=== PATIENT | female | born 2000 | race African-American/Black ===

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

== ENCOUNTER 2020-06-20 12:57 | Observation (INO) | payer OTHER ==
[2020-06-20] MEDS ORDERED: IV RINGERS,LACTATED 1000ML 1,000 ML IV SCH (13:35)
[2020-06-20] MEDS ORDERED: BENZOCAINE 20% TOPICAL AEROSOL SPRAY 57GM CAN. TP PRN (14:00)
[2020-06-20 17:19] LABS: BILIRUBIN,URINE NEGATIVE (NEG); CLARITY,URINE CLOUDY; COLOR,URINE YELLOW; NITRITE,URINE NEGATIVE (NEG); PROTEIN,URINE NEGATIVE (NEG-TRACE); UROBILINOGEN,URINE 0.2 mg/dL (0.2 mg/dL)
[2020-06-20 17:25] LABS: BACTERIA,URINE MANY /HPF (0-FEW); RBC,URINE OCC /HPF (0-2); WBC,URINE 20-40 /HPF (0-4)
[2020-06-20 17:26] LABS: SQUAMOUS EPITHELIAL CELL,UR MANY /LPF
== END 2020-06-20 14:10 | disposition home or self-care (01) ==
LOC: 3 SO LND 12:57
PROVIDERS: ADMIT Obstetrics & Gynecology; ATTEND Obstetrics & Gynecology
DX: O22.43 Hemorrhoids in pregnancy, third trimester (principal); Z3A.29 29 weeks gestation of pregnancy
CPT/HCPCS: 81001; 87086; G0378; G0379

== ENCOUNTER 2020-12-11 02:37 | Emergency (ER) | payer OTHER ==
[~2020-12-11] VITALS: Ht 160 cm; Wt 59.1 kg
[~2020-12-11 02:37] MED LIST changes: +ESCITALOPRAM OX10 MG PO; +FERR325T72 PO; +IBUP-1027 PO
[2020-12-11 02:43] VITALS: BP 117/67
--- NOTE | 2020-12-11 03:09 | PHYS DOC ---
Past Medical History Past Medical History: No Pertinent History Past Surgical History: No Surgical History Smoking Status: Former Smoker Alcohol Use: None Drug Use: None General Adult EDM: Chief Complaint: SORE THROAT HPI: HPI: Patient is a 20 year old female with no past medical history presents for sore throat. She states that this has been going on for 3 weeks to 1 month. She states that in the beginning of this assess her throat hurt on the right side but now this is progressed to the left side. She states that the pain has been unchanged over this timeframe. She states it is a sharp pain that is worse when she swallows, eats, drinks. She states that yesterday she had an increase in the pain. She has tried Tylenol Cold and flu as well has lozenges, neither of which have brought relief. She also has some left ear pain. She denies cough, headache, congestion, shortness of breath, chest pain, abdominal pain, diarrhea. She states that she has been around salvatore at home who is sick with a viral process, Salvatore has been tested for Covid and was negative. Review of Systems: Review of Systems: Constitutional: Denies fever or chills. [] Eyes: Denies change in visual acuity. [] HENT: Denies nasal congestion Positive sore throat. [] Respiratory: Denies cough or shortness of breath. [] Cardiovascular: Denies chest pain or edema. [] GI: Denies abdominal pain, nausea, vomiting, bloody stools or diarrhea. [] : Denies dysuria. [] Musculoskeletal: Denies back pain or joint pain. [] Integument: Denies rash. [] Neurologic: Denies headache, focal weakness or sensory changes. [] Endocrine: Denies polyuria or polydipsia. [] Lymphatic: Denies swollen glands. [] Psychiatric: Denies depression or anxiety. [] Heart Score: Risk Factors: Risk Factors: DM, Current or recent (<one month) smoker, HTN, HLP, family history of CAD, obesity. Risk Scores: Score 0 - 3: 2.5% MACE over next 6 weeks - Discharge Home Score 4 - 6: 20.3% MACE over next 6 weeks - Admit for Clinical Observation Score 7 - 10: 72.7% MACE over next 6 weeks - Early Invasive Strategies Allergies: Allergies: Allergies Coded Allergies Type Severity Reaction Last Updated Verified No Known Drug Allergies 02/18/19 No Physical Exam: PE: Constitutional: Well developed, well nourished, no acute distress, non-toxic appearance. [] HENT: Normocephalic, atraumatic, TM bilateral ears normal, ear canal on left ear red and irritated, oropharynx moist, no oral exudates, nose normal. [] Eyes: PERRLA, EOMI, conjunctiva normal, no discharge. [] Neck: Normal range of motion, no tenderness, supple, no stridor. [] Cardiovascular:Heart rate regular rhythm, no murmur [] Lungs & Thorax: Bilateral breath sounds clear to auscultation [] Abdomen: Bowel sounds normal, soft, no tenderness, no masses, no pulsatile masses. [] Skin: Warm, dry, no erythema, no rash. [] Back: No tenderness, no CVA tenderness. [] Extremities: No tenderness, no cyanosis, no clubbing, ROM intact, no edema. [] Neurologic: Alert and oriented X 3, normal motor function, normal sensory fu nction, no focal deficits noted. [] Psychologic: Affect normal, judgement normal, mood normal. [] Current Patient Data: Vital Signs: Vital Signs Date Time Temp Pulse Resp B/P (MAP) Pulse Ox O2 Delivery O2 Flow Rate FiO2 12/11/20 02:43 98.3 99 16 117/67 (84) 98 98.3 EKG: EKG: [] Radiology/Procedures: Radiology/Procedures: [] Course & Med Decision Making: Course & Med Decision Making Pertinent Labs and Imaging studies reviewed. (See chart for details) [] Dragon Disclaimer: Gregoria Disclaimer: This electronic medical record was generated, in whole or in part, using a voice recognition dictation system. Departure Departure Impression: Primary Impression: Pharyngitis Disposition: 01 HOME SELF CARE/HOMELESS Condition: STABLE Referrals: NO PCP (PCP) Patient Instructions: Viral and Bacterial Pharyngitis Scripts Amoxicillin (AMOXICILLIN) 500 Mg Tablet 1 TAB PO BID, #20 TAB Prov: MIHAELA DOMINIQUE DO 12/11/20 MIHAELA DOMINIQUE DO Dec 11, 2020 03:09
[2020-12-11] MEDS ORDERED: AMOX500T PO (03:27)
== END 2020-12-11 03:31 | disposition home or self-care (01) ==
LOC: ER 02:37
DX: J02.9 Acute pharyngitis, unspecified (principal); Z87.891 Personal history of nicotine dependence
CPT/HCPCS: 99283

== ENCOUNTER 2021-05-14 13:01 | Emergency (ER) | payer OTHER ==
[~2021-05-14] VITALS: Ht 160 cm; Wt 52.0 kg
[~2021-05-14 13:01] MED LIST changes: +AMOX500T PO
[2021-05-14] MEDS ORDERED: cefTRIAXone IM 500 MG VIAL. IM ONE (14:00)
--- NOTE | 2021-05-14 14:00 | PHYS DOC ---
Past Medical History Past Medical History: No Pertinent History Past Surgical History: No Surgical History Smoking Status: Former Smoker Alcohol Use: None Drug Use: None General Adult EDM: Chief Complaint: BACK PAIN OR INJURY HPI: HPI: Patient is a 21 year old female who presents with today began having bilateral lower back pain is an aching type pain. She states that today she noticed some abnormal vaginal discharge to had a smell to it. She states that she there is a chance that she could have a sexual transmitted disease. She would like to be treated for them today. Patient denies fever, urinary symptoms, abdominal pain, nausea, vomiting, diarrhea, chest pain, shortness of breath, cough, headache or dizziness. She denies any other past medical history. Review of Systems: Review of Systems: Constitutional: Denies fever or chills. [] Eyes: Denies change in visual acuity. [] HENT: Denies nasal congestion or sore throat. [] Respiratory: Denies cough or shortness of breath. [] Cardiovascular: Denies chest pain or edema. [] GI: Denies abdominal pain, nausea, vomiting, bloody stools or diarrhea. [] : Denies dysuria. + Vaginal discharge [] Musculoskeletal: + Bilateral lower back pain or denies joint pain. [] Integument: Denies rash. [] Neurologic: Denies headache, focal weakness or sensory changes. [] Endocrine: Denies polyuria or polydipsia. [] Lymphatic: Denies swollen glands. [] Psychiatric: Denies depression or anxiety. [] Heart Score: C/O Chest Pain: No Risk Factors: Risk Factors: DM, Current or recent (<one month) smoker, HTN, HLP, family history of CAD, obesity. Risk Scores: Score 0 - 3: 2.5% MACE over next 6 weeks - Discharge Home Score 4 - 6: 20.3% MACE over next 6 weeks - Admit for Clinical Observation Score 7 - 10: 72.7% MACE over next 6 weeks - Early Invasive Strategies Current Medications: Current Medications Medications (Trade) Dose Ordered Sig/[facility] Start Time Stop Time Status Last Admin Dose Admin Ceftriaxone Sodium (Rocephin Im) 500 mg 1X ONCE 05/14/21 14:00 05/14/21 14:01 Allergies: Allergies: Allergies Coded Allergies Type Severity Reaction Last Updated Verified No Known Drug Allergies 02/18/19 No Physical Exam: PE: Constitutional: Well developed, well nourished, no acute distress, non-toxic appearance. [] HENT: Normocephalic, atraumatic, bilateral external ears normal, oropharynx moist, no oral exudates, nose normal. [] Eyes: PERRLA, EOMI, conjunctiva normal, no discharge. [] Neck: Normal range of motion, no tenderness, supple, no stridor. [] Cardiovascular:Heart rate regular rhythm, no murmur [] Lungs & Thorax: Bilateral breath sounds clear to auscultation [] Abdomen: Bowel sounds normal, soft, low mid pressure tenderness, no masses, no pulsatile masses. [] Skin: Warm, dry, no erythema, no rash. [] Back: No tenderness, no CVA tenderness. [] Extremities: No tenderness, no cyanosis, no clubbing, ROM intact, no edema. [] Neurologic: Alert and oriented X 3, normal motor function, normal sensory function, no focal deficits noted. [] Psychologic: Affect normal, judgement normal, mood normal. [] Current Patient Data: Labs: Laboratory Tests Test 05/14/21 13:20 POC Urine HCG, Qualitative Hcg negative (Negative) EKG: EKG: [] Radiology/Procedures: Radiology/Procedures: [] Course & Med Decision Making: Course & Med Decision Making Pertinent Labs and Imaging studies reviewed. (See chart for details) See HPI. Alert and oriented x4. Speaks in full clear sentences. Skin pink warm and dry. Ambulatory with a steady gait. Abdomen is soft and nontender. She states when I palpate the lower mid abdomen that she just feels pressure. Afebrile. Patient is treated with Rocephin she will get a prescription for doxycycline to go home on. Pelvic Exam: Dispensing Operator present Abdomen: Nontender External Genitalia: Normal Skin Speculum: Normal vaginal mucosa, white cervical discharge Bimanual: No adnexal masses or tenderness, No CMT [] Dragon Disclaimer: Dragon Disclaimer: This electronic medical record was generated, in whole or in part, using a voice recognition dictation system. Departure Departure Impression: Primary Impression: Urinary tract infection Qualified Codes: N39.0 - Urinary tract infection, site not specified; R31.9 - Hematuria, unspecified Additional Impression: Concern about STD in female without diagnosis Disposition: 01 HOME / SELF CARE / HOMELESS Condition: STABLE Referrals: NO PCP (PCP) Patient Instructions: Urinary Tract Infection Additional Instructions: FOLLOW UP WITH A GYNECOLOGISTS. TAKE MEDICATION PRESCRIBED AND WITH FOOD. NO SEX UNTIL 10 DAYS AFTER TREATMENT. DRINK PLENTY OF FLUIDS. Scripts Doxycycline Hyclate (DOXYCYCLINE HYCLATE) 100 Mg Capsule 1 CAP PO BID, #14 CAP Prov: DANIA GALINDO APRN 05/14/21 Cephalexin (CEPHALEXIN) 500 Mg Capsule 1 CAP PO BID, #21 CAP Prov: DANIA GALINDO LPN RN HOSPICE 05/14/21 DANIA GALINDO APRN May 14, 2021 14:00
[2021-05-14 14:08] LABS: BILIRUBIN,URINE NEGATIVE (NEG); CLARITY,URINE CLEAR; COLOR,URINE YELLOW; NITRITE,URINE NEGATIVE (NEG); PROTEIN,URINE NEGATIVE (NEG-TRACE)
[2021-05-14 14:22] LABS: BACTERIA,URINE MODERATE /HPF (0-FEW); RBC,URINE 0 /HPF (0-2)
[2021-05-14 14:37] VITALS: BP 105/66
[2021-05-14] MEDS ORDERED: CEPH500C PO (14:50)
[2021-05-14] MEDS ORDERED: DOXY100C3 PO (14:50)
[2021-05-16 18:12] LABS: GC PROBE Negative (Negative)
== END 2021-05-14 15:10 | disposition home or self-care (01) ==
LOC: ER 13:01
DX: N39.0 Urinary tract infection, site not specified (principal); R31.9 Hematuria, unspecified; Z20.2 Contact with and (suspected) exposure to infections with a predominantly sexual mode of transmission; Z87.891 Personal history of nicotine dependence
CPT/HCPCS: 81001; 81025; 87086; 87491; 87591; 96372; 99284; J0696; Q0111; 99283

== ENCOUNTER 2021-07-23 17:53 | Emergency (ER) | payer OTHER ==
[~2021-07-23] VITALS: Ht 160 cm; Wt 60.4 kg
[~2021-07-23 17:53] MED LIST changes: +CEPH500C PO; +DOXY100C3 PO
--- NOTE | 2021-07-23 18:59 | PHYS DOC ---
Past Medical History Past Medical History: No Pertinent History Past Surgical History: No Surgical History Smoking Status: Former Smoker Alcohol Use: None Drug Use: None General Adult EDM: Chief Complaint: VAGINAL BLEEDING HPI: HPI: Patient is a 21 year old female here with multiple complaints, which are erickson gstanding for admittedly 2 to 3 months. She reports that she has had intermittent mild bruising on her legs and knees, which are actually improving. She denies gingival bleeding, epistaxis. She denies continuous bleeding or bruising, and the small bruises usually, after some sort of minor trauma. She also reports greater than 3 months of "abdominal pain" "kind of like I am naus eated and constipated at the same time." She denies vomiting. Based on her description she is not constipated, and is having regular bowel movements at least every 1 to 2 days. She denies anorexia. She denies fevers or chills. She admits to some mild urinary frequency. Denies dysuria. She reports that several weeks ago she had an Implanon placed, and she reports that she feels like it is "making everything worse." She reports some heavier than usual vaginal bleeding for the past 2 days. She thinks her last menstrual period may have been in late May. She denies dizziness, chest pain, dyspnea, syncope, headache, cough. She saw her primary care physician at [facility] [place] about a month ago and had normal labs at that time. She has not made a follow-up appointment since then. Review of Systems: Review of Systems: Constitutional: Denies fever or chills. [] Eyes: Denies change in visual acuity. [] HENT: Denies nasal congestion or sore throat. [] Respiratory: Denies cough or shortness of breath. [] Cardiovascular: Denies chest pain or edema. [] GI: Reports generalized abdominal discomfort. Reports nausea without vomiting. No constipation or diarrhea reported. No melena or hematochezia. : Denies dysuria. Reports urinary frequency but denies other urinary symptoms. Reports heavier than usual vaginal bleeding for the past 2 days. Musculoskeletal: Denies back pain or joint pain. [] Integument: Denies rash. Has reportedly had a small bruises on lower extremities, which are reportedly improving for the past several weeks. No other abnormal skin complaints. [] Neurologic: Denies headache, focal weakness or sensory changes. [] [] Lymphatic: Denies swollen glands. [] Psychiatric: Denies depression or anxiety. [] Heart Score: C/O Chest Pain: No Risk Factors: Risk Factors: DM, Current or recent (<one month) smoker, HTN, HLP, family history of CAD, obesity. Risk Scores: Score 0 - 3: 2.5% MACE over next 6 weeks - Discharge Home Score 4 - 6: 20.3% MACE over next 6 weeks - Admit for Clinical Observation Score 7 - 10: 72.7% MACE over next 6 weeks - Early Invasive Strategies Allergies: Allergies: Allergies Coded Allergies Type Severity Reaction Last Updated Verified No Known Drug Allergies 02/18/19 No Physical Exam: PE: Constitutional: Well developed, well nourished, no acute distress, non-toxic appearance. [] HENT: Normocephalic, atraumatic, bilateral external ears normal, oropharynx moist, no oral exudates, nose normal. [] Eyes: PERRLA, EOMI, conjunctiva normal, without pallor or icterus, no discharge. [] Neck: Normal range of motion, no tenderness, supple, no stridor. [] Cardiovascular:Heart rate regular rhythm, no murmur [] Lungs & Thorax: Bilateral breath sounds clear to auscultation [] Abdomen: Bowel sounds normal, soft, no tenderness, no masses, no pulsatile masses. No CVA tenderness. No palpable masses organomegaly. [] Skin: Warm, dry, no erythema, no rash. No evidence of ecchymoses are noted. [] Back: No tenderness, no CVA tenderness. [] Extremities: No tenderness, no cyanosis, no clubbing, ROM intact, no edema. [] Neurologic: Alert and oriented X 3, normal motor function, normal sensory function, no focal deficits noted. [] Psychologic: Affect normal, judgement normal, mood normal. [] Current Patient Data: Vital Signs: Vital Signs Date Time Temp Pulse Resp B/P (MAP) Pulse Ox O2 Delivery O2 Flow Rate FiO2 07/23/21 18:35 98.8 81 18 137/68 (91) 100 Room Air 98.8 EKG: EKG: [] Radiology/Procedures: Radiology/Procedures: [] Course & Med Decision Making: Course & Med Decision Making Pertinent Labs and Imaging studies reviewed. (See chart for details) I have discussed the findings, differential diagnosis and plan of care with the patient. She is very well-appearing. Laboratory exams are unremarkable. There is no indication for further invasive exams, imaging or labs at this time, based on her current presentation. I have strongly recommended follow-up with her primary care physician at [facility] [place]. Strict return precautions are provided. She verbalized understanding. Gregoria Disclaimer: Gregoria Disclaimer: This electronic medical record was generated, in whole or in part, using a voice recognition dictation system. Departure Departure Impression: Primary Impression: Irregular menstrual bleeding Disposition: HOME / SELF CARE / HOMELESS Condition: STABLE Referrals: NO PCP (PCP) Patient Instructions: Uterine Bleeding, Dysfunctional, [id number] Additional Instructions: Return to the ER for severe abdominal pain, nausea and vomiting, fever 100.4 or higher, if you are bleeding very large clots are up going through more than 1 large pad for 30 minutes to an hour. If you experience severe dizziness or passing out or any other concerns. Stay hydrated. It may take a few menstrual cycles for your body to acclimate to new control. Your labs and urine are normal here today. Please contact your primary care physician for further care and follow-up. LISETH GELLER DO Jul 23, 2021 18:59
[2021-07-23 19:15] LABS: BASO % 1 % (0-3); EOS # 0.1 x10^3/uL (0.0-0.7); EOS % 1 % (0-3); HEMATOCRIT 37.7 % (36.0-47.0); HEMOGLOBIN 12.3 g/dL (12.0-15.5); LYMPH # 2.6 x10^3/uL (1.0-4.8); LYMPH % 31 % (24-48); MEAN CORPUSCULAR HEMOGLOBIN 30 pg (25-35); MEAN CORPUSCULAR HGB CONC 33 g/dL (31-37); MEAN CORPUSCULAR VOLUME 92 fL (79-100); MONO # 0.7 x10^3/uL (0.0-1.1); MONO % 8 % (0-9); NEUT # 5.2 x10^3/uL (1.8-7.7); NEUT % 60 % (31-73); PLATELET COUNT 225 x10^3/uL (140-400); RED BLOOD COUNT 4.11 x10^6/uL (3.50-5.40); RED CELL DISTRIBUTION WIDTH 14.7 % (11.5-14.5); WHITE BLOOD COUNT 8.7 x10^3/uL (4.0-11.0)
[2021-07-23 19:21] LABS: BILIRUBIN,URINE NEGATIVE (NEG); CLARITY,URINE CLEAR; COLOR,URINE YELLOW; NITRITE,URINE NEGATIVE (NEG); PROTEIN,URINE NEGATIVE (NEG-TRACE)
[2021-07-23 19:21] LABS: CALCIUM 8.7 mg/dL (8.5-10.1); CREATININE 0.9 mg/dL (0.6-1.0); GFR 95.6; POTASSIUM 3.5 mmol/L (3.5-5.1)
[2021-07-23 19:27] LABS: BACTERIA,URINE 0 /HPF (0-FEW); U PREG PATIENT NEGATIVE (NEG)
[2021-07-23 19:27] LABS: ALBUMIN 3.9 g/dL (3.4-5.0); TOTAL BILIRUBIN 0.2 mg/dL (0.2-1.0); TOTAL PROTEIN 7.9 g/dL (6.4-8.2)
[2021-07-23 20:56] VITALS: BP 115/71
== END 2021-07-23 20:55 | disposition home or self-care (01) ==
LOC: ER 17:53
DX: N92.6 Irregular menstruation, unspecified (principal)
CPT/HCPCS: 36415; 80053; 81001; 81025; 83690; 85025; 87086; 99283